=== PATIENT | female | born 1960 | race Native Hawaiian/Other Pacific Islander ===

== ENCOUNTER 2017-03-04 23:41 | Outpatient (CLI) | payer OTHER ==
[~2017-03-04 23:41] MED LIST: AMLO5TAB PO; ASA LO-DOSE81 MG PO; ATEN25TA21 PO; LIPITOR80 MG PO; LISI20TA11 PO; PLAVIX75 MG PO; PLETAL100 MG PO; RANI150T78 PO; WELLBUTRIN75 MG PO
== END 2017-03-04 23:53 | disposition short-term general hospital (02) ==
LOC: AMB 23:41
DX: K92.1 Melena (principal); K92.0 Hematemesis
CPT/HCPCS: A0425; A0427